=== PATIENT | female | born 1990 | race Caucasian/White ===

== ENCOUNTER 2021-11-29 07:32 | Inpatient (IN) ==
[2021-11-29] MEDS ORDERED: OXYTOCIN 30 UNITS/500 ML BAG IV PRN ×2 (08:29)
[2021-11-29 08:51] LABS: Hematocrit (blood only) 35.7 % (37-47); Hemoglobin 11.9 g/dL (12.0-16.0); Mean Corpuscular Hemoglobin 25.8 pg (25-34); Mean Corpuscular Hgb Conc 33.3 g/dL (32-36); Mean Corpuscular Volume 77.3 fL (80-100); Nucleated RBC # (auto) 0.02 K/uL (0-0); Nucleated RBC % (auto) 0.1 %; Platelet Count 261 K/uL (130-400); RDW Coefficient of Variation 15.6 % (11.5-14.5); RDW Standard Deviation 43.3 fL (36.4-46.3); Red Blood Count 4.62 M/uL (4.2-5.4); White Blood Count 12.38 K/uL (4.8-10.8)
[2021-11-29] MEDS: LACTATED RINGER'S 1,000 ML IV PRN ×3 (08:57→18:37)
--- NOTE | 2021-11-29 09:02 | History & Physical Report ---
Date of Service November 29, 2021 Assessment & Plan (1) Encounter for induction of labor: Plan: 31-year-old w/ complicated by BMI>40, gestational HTN, and hypothyroidism, presenting to L&D at 38 WGA for scheduled IOL. * GBS+, RI, Rh+: IV Penicillin K, per protocol (6 units now, 3 units q4h) * Gestational htn: reviewed CMP, lipid profile labs. AST, ALT wnl. Alk phos elevated (230) in manner typical of . Pt currently asymptomatic. Continue to monitor. * Admit to L&D * NPO except sips and chips * Pitocin PRN: started * Pt. receiving epidural * Maintenance IVF: Lactated Ringer's at 125 mL * Continuous electronic heart monitoring * Full Code * Anticipate (2) Gestational hypertension: (3) Morbid obesity: (4) Group B streptococcal carriage complicating : Admission and Anticipated Discharge Date Admission Date: November 29, 2021 History of Present Illness Primary Care Provider: Nkechi Peters is a 31 y/o female currently at 38 WGA with an JAN 12/20/21 as determined by LMP who is here for scheduled induction. Her was complicated by gestational hypertension. No contractions; + movement; No fluid loss; No bloody show Had regular appointments with OB. Labs: 11/29/21 Blood type: AB positive Antibody screen: Negative H.9 Hct: 35.7% WBC: 12.38 Plt: 261 Rubella: Immune RPR: Non reactive Gonorrhea: Not detected Chlamydia: Not detected HIV: Negative HbSAg: Negative GBS: Positive Other screens: cff-DNA: declined CF: declined SMA: declined Allergies Allergy/AdvReac Type Severity Reaction Status Date / Time naproxen Allergy Mild Facial Verified 11/29/21 07:55 swelling Home Medications Medication Instructions Recorded Confirmed Type prenat.vits,adilene,bzy-buoz-xusek 1 tab PO DAILY 05/05/21 11/29/21 History breast pump #1 ea 10/01/21 11/26/21 Rx Pepcid 1 tab PO DAILY 11/08/21 11/29/21 History iron 1 tab PO DIRECTED 11/08/21 11/29/21 History Patient History Medical History (Updated 11/29/21 @ 09:10 by Robert White MD) Gestational hypertension LGSIL on Pap smear of cervix Migraine Morbid obesity Varicella vaccination Surgical History History of colposcopy Hx of cholecystectomy [place] teeth removed Family History Father Coronary heart disease Dyslipidemia Mother Thyroid disease Sister Thyroid disease Denies family history of Ovarian cancer Prostate cancer Breast cancer Colorectal cancer Social History Smoking Status: Never smoker Second Hand Exposure: No; Hx Alcohol Use: No Hx Substance Use: No Preferred Language: Bermudian Communication Ability: Effective Visual Impairment: No Limitations Hearing Ability: Normal Geriatric Nursing Assistant Required: No Beliefs That Will Affect Care: None marital status: marital status details: Kvng Peters (30) [phone] Current Living Situation: Spouse Current Living Situation Comment: Kvng- current occupational status: employed 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 No acute distress. Cardiac: Regular rate and rhythm, no murmurs/rubs/gallops. Respiratory: Clear to auscultation bilaterally a/p, no wheezes/rales/rhonchi. No increased work of breathing. Symmetrical chest rise. No respiratory distress. Pelvic: Dilation 3 cm; Effacement 25%; Station -[address] Bella Lower Extremities: No lower extremity edema or swelling. No deep calf pain. Ciara's negative bilaterally Baseline: 150 bpm Variability: Moderate Accelerations: 3+ in 5 minutes Decelerations: None Results & Data ([facility]) Vital Signs (Past 12 Hours) Vital Signs Temp Pulse Resp BP 11/29/21 07:57 36.8 C 22 11/29/21 07:52 109 H 132/93 11/29/21 07:42 36.8 C 22 Supervising Physician Co-Signing Physician Notes Resident Physician Supervision Note: I was present with Dr. White during the history and exam. I discussed the case with the resident and agree with the findings and plan as documented in the note. Any exceptions or clarifications are listed here: admit for planned induction. gest htn, gbs pos, and of note last u/s efw 87%. alvarez balloon deflated, was in vagina, prior to exam findings above. fhts categ 1. plan pitocin and pcn. arom when able. Documented By: Mary Bella MD, FACOG Resident Activity Tracking Resident Involvement: Resident Care Provided Care Provided: OB Delivery
[2021-11-29 09:10] LABS: Albumin Level 3.4 gm/dl (3.4-5.0); BUN Creatinine Ratio 9.1 (10-20); Bilirubin,Total 0.2 mg/dl (0.2-1.0); Creatinine Clr Calc Pharmacy 148.6 ml/min; Est GFR (African American) 120.1 ml/min; Est GFR (Non-African American) 103.6 ml/min; Globulin 3.3 gm/dl (2.5-4.0); Potassium 3.7 mmol/L (3.5-5.1); Total Protein 6.7 gm/dl (6.0-8.3)
[2021-11-29] MEDS ORDERED: PENICILLIN G POTASSIUM 6 MU in DEXTROSE 5% 250 ML IV ONE (09:15)
[2021-11-29] MEDS ORDERED: fentaNYL citrate 100 MCG/2 ML VIAL ONE (13:23)
[2021-11-29] MEDS ORDERED: BUPIVACAINE 0.25% 30 ML VIAL ONE ×2 (13:23→15:49)
[2021-11-29] MEDS ORDERED: SODIUM CHLORIDE 0.9% INJ 10 ML VIAL ONE ×2 (13:23→16:05)
[2021-11-29] MEDS ORDERED: ePHEDrine sulfate 50 MG/ML AMP ONE (13:23)
[2021-11-29] MEDS ORDERED: fentaNYL 2MCG/ML ROPIVACAINE 1.25MG/ML 100 ML BAG EPI ONE ×2 (13:25→18:41)
[2021-11-29] MEDS: PENICILLIN G POTASSIUM 3 MU in DEXTROSE 5% 100 ML IV SCH ×2 (13:26→17:29)
[2021-11-29] MEDS ORDERED: diphenhydrAMINE 50 MG/ML VIAL IV PRN (13:53)
[2021-11-29] MEDS ORDERED: NALOXONE HCL 1 MG in SODIUM CHLORIDE 0.9% 1000ML 1,000 ML IV PRN (13:53)
[2021-11-29] MEDS ORDERED: NALBUPHINE HCL INJ 10 MG/ML AMP IV PRN (13:53)
[2021-11-29] MEDS ORDERED: ePHEDrine sulfate 50 MG/ML AMP IV PRN (13:53)
[2021-11-29] MEDS ORDERED: NALOXONE HCL 0.4 MG/1 ML VIAL/CARP IV PRN (13:53)
--- NOTE | 2021-11-29 13:57 | Anesthesiology Consultation ---
Date of Service November 29, 2021 Assessment & Plan Chart Review Chart Review: Patient NOT seen in Pre Admission Testing and Acceptable Risk for Labor Epidural Consults Requested none ASA ASA3 Proposed Anesthesia Anesthesia Type: Labor Epidural and CSE Risk / Benefits Reviewed With: PT / POA / Parent / Guardian, Accepts Plan and Informed Consent Obtained History Height/Weight Height: 5 ft 5 in Weight: 134.717 kg Allergies Allergy/AdvReac Type Severity Reaction Status Date / Time naproxen Allergy Mild Facial Verified 11/29/21 07:55 swelling Medications Home Medications Medication Instructions Recorded Confirmed Last Taken prenat.vits,adilene,ayb-yybs-coxkm 1 tab PO DAILY 05/05/21 11/29/21 1 Day Ago ~11/28/21 breast pump #1 ea 10/01/21 11/26/21 Unknown Pepcid 1 tab PO DAILY 11/08/21 11/29/21 1 Day Ago ~11/28/21 iron 1 tab PO DIRECTED 11/08/21 11/29/21 2 Days Ago ~11/27/21 Active Medications Generic Name Dose Route Start Last Admin Trade Name Cliff PRN Reason Stop Dose Admin Lactated Ringer's 1,000 mls @ 125 mls/hr 11/29/21 08:29 11/29/21 13:52 Lr IV 12/01/21 08:28 999 mls/hr .Q8H PRN Administration L&D Protocol Protocol Oxytocin 30 units in 500 mls @ 17 mls/hr 11/29/21 08:29 11/29/21 13:32 Pitocin IV 12/01/21 08:28 1.02 units/hr .Q24H PRN 17 mls/hr Labor Induction/Augmentation Titration Protocol 1.02 UNITS/HR Penicillin G Potassium 3 mu/ 106 mls @ 100 mls/hr 11/29/21 10:00 11/29/21 13:26 Dextrose IV 12/09/21 09:59 100 mls/hr Q4H KRISTEN Administration Protocol NPO Date Last Intake of Fluids: 11/29/21 Time Last Intake of Fluids: 13:00 Date Last Intake of Solids: 11/29/21 Time Last Intake of Solids: 09:00 Past Medical History Medical History Gestational hypertension LGSIL on Pap smear of cervix Migraine Morbid obesity Varicella vaccination Exercise / Class Metabolic Activity II 4-5 Yardwork/Stairs/Walk up hill Past Family History Family History Father Coronary heart disease Dyslipidemia Mother Thyroid disease Sister Thyroid disease Denies family history of Ovarian cancer Prostate cancer Breast cancer Colorectal cancer Past Surgical History Surgical History History of colposcopy Hx of cholecystectomy [place] teeth removed Past Anesthesia History No Hx of Anesthesia Complications and No Family Hx of Anesthesia Complications History of PONV No Hx of PONV and No Hx of Motion Sickness Social History Smoking Status: Never smoker Hx Alcohol Use: No Hx Substance Use: No substance use type: does not use Review of Systems no chest pain or sob Physical Exam Vital Signs Last Vital Signs Temp 36.7 C 11/29/21 11:07 Pulse 91 H 11/29/21 13:50 Resp 18 11/29/21 11:07 BP 137/89 11/29/21 13:14 Pulse Ox 99 11/29/21 13:50 Constitutional + morbidly obese ENMT Mouth: no TMJ abnormality Thyromental Distance: > or= 3.5 Finger Breadths Mallampati Class: II Neck normal visual inspection Respiratory normal respiratory effort Auscultation: lungs clear to auscultation bilaterally Cardiovascular Rate/Rhythm: regular rate and regular rhythm Musculoskeletal Spine: normal cervical ROM Neurologic moves all extremities Psychiatric Orientation: alert and oriented x 3 Testing Laboratory Results 11/29/21 08:44 11/29/21 08:44 Blood Type AB Positive 11/29/21 08:30 Antibody Screen NEGATIVE 11/29/21 08:30
--- NOTE | 2021-11-29 15:03 | Labor Progress Brief Note ---
Date of Service November 29, 2021 Subjective has epidural and comfortable. Assessment & Plan (1) Gestational hypertension: (2) Encounter for induction of labor: (3) Morbid obesity: (4) Group B streptococcal carriage complicating : Plan: c/w pit and see how arom helps labor pattern. c/w pcn. fhts categ 1. Admission and Anticipated Discharge Date Admission Date: November 29, 2021 Physical Exam Constitutional: WD/WN, vitals as above Genitourinary: Manual OB Exam: + cervical dilation (3-4cm), + cervical effacement 80%, + station (anterior) -2 and + amniotic fluid (AROM ) clear OB Exam Monitor Tracing: + external FHT monitor used, + external uterine monitor used (pit at 20, not traced well. ), + category I and + normal FHT variability [facility] Data ([facility]) Vital Signs (Past 12 Hours) Vital Signs Temp Pulse Resp BP Pulse Ox 11/29/21 15:01 77 140/70 11/29/21 15:00 83 11/29/21 14:55 103 H 99 11/29/21 14:50 86 22 99 11/29/21 14:45 89 22 99 11/29/21 14:44 83 126/74 11/29/21 14:40 81 22 98 11/29/21 14:38 86 123/65 11/29/21 14:35 82 20 98 11/29/21 14:32 85 123/72 11/29/21 14:30 83 20 98 11/29/21 14:27 82 118/60 11/29/21 14:25 83 20 98 11/29/21 14:22 80 116/62 11/29/21 14:20 92 H 20 99 11/29/21 14:16 90 124/59 L 11/29/21 14:15 92 H 20 100 11/29/21 14:14 88 111/61 11/29/21 14:12 83 129/77 11/29/21 14:10 91 H 24 100 11/29/21 14:09 86 126/88 11/29/21 14:07 91 H 175/100 H 11/29/21 14:05 93 H 100 11/29/21 14:00 103 H 99 11/29/21 13:55 98.1 F 98 H 20 98 11/29/21 13:50 91 H 99 11/29/21 13:14 93 H 137/89 11/29/21 12:03 95 H 127/85 11/29/21 11:07 98.1 F 18 11/29/21 11:03 150/106 H 11/29/21 07:57 98.2 F 22 11/29/21 07:52 109 H 132/93 11/29/21 07:42 98.2 F 22 Coding Level of Care Code None Diagnoses Gestational hypertension O13.9 Encounter for induction of labor Z34.90 Morbid obesity E66.01 Group B streptococcal carriage complicating O99.820
[2021-11-29] MEDS ORDERED: CALCIUM CARBONATE 500 MG CHEWABLE TAB ONE ×2 (17:26→17:29)
[2021-11-29] MEDS: CALCIUM CARBONATE 500 MG CHEWABLE TAB PO PRN ×2 (17:30→22:42)
[2021-11-29] MEDS: fentaNYL 2MCG/ML ROPIVACAINE 1.25MG/ML 100 ML BAG EPI PRN (18:44)
[2021-11-29] MEDS ORDERED: NURSING L&D Epidural Breakthrough Pain Update ONE (18:52)
[2021-11-29] MEDS ORDERED: FAMOTIDINE 40 MG TABLET PO ONE (19:51)
--- NOTE | 2021-11-29 19:55 | Labor Progress Brief Note ---
Date of Service November 29, 2021 Subjective having heartburn, tums did not help. takes 40mg pepcid nightly usually. Assessment & Plan (1) Morbid obesity: (2) Group B streptococcal carriage complicating : (3) Gestational hypertension: (4) Encounter for induction of labor: Plan: minimal cx change but some change. will try to 1/2 pit and re-increase to see how pattern looks. fhts categ 1. pepcid ordered. c/w pcn as well. Admission and Anticipated Discharge Date Admission Date: November 29, 2021 Physical Exam Constitutional: WD/WN, vitals as above Genitourinary: Manual OB Exam: + cervical dilation 5 cm, + cervical effacement 80% and + station -2 OB Exam Monitor Tracing: + external FHT monitor used (145 mod variability, ), + external uterine monitor used (q3), + category I and + normal FHT variability Results & Data ([facility]) Vital Signs (Past 12 Hours) Vital Signs Temp Pulse Resp BP Pulse Ox 11/29/21 19:50 93 H 97 11/29/21 19:45 95 H 149/82 H 97 11/29/21 19:40 82 97 11/29/21 19:35 93 H 97 11/29/21 19:30 81 148/81 H 98 11/29/21 19:25 86 98 11/29/21 19:20 89 98 11/29/21 19:16 80 153/90 H 11/29/21 19:15 83 99 11/29/21 19:10 98 H 100 11/29/21 19:05 98.4 F 84 18 100 11/29/21 19:00 100 H 20 137/77 98 11/29/21 18:55 80 98 11/29/21 18:50 77 99 11/29/21 18:46 81 148/81 H 11/29/21 18:45 85 100 11/29/21 18:40 77 99 11/29/21 18:35 83 99 11/29/21 18:34 98.4 F 11/29/21 18:31 77 138/84 11/29/21 18:30 77 20 99 11/29/21 18:25 80 99 11/29/21 18:20 74 99 11/29/21 18:15 75 145/82 H 100 11/29/21 18:10 88 99 03/22 18:05 73 99 03/22 18:00 77 20 140/85 99 03/22 17:55 78 98 22 17:50 76 99 03/22 17:45 79 132/76 99 03/22 17:40 89 99 03/22 17:35 86 100 11/29/22 17:30 82 20 150/95 H 99 22 17:25 76 99 22 17:20 86 99 0322 17:16 72 142/92 H 22 17:15 74 100 11/29/21 17:10 78 99 22 17:05 80 99 22 17:00 91 H 20 147/86 H 99 22 16:55 79 99 22 16:50 77 99 22 16:47 76 147/84 H 11/29/21 16:45 74 98 22 16:40 76 97 22 16:35 98.2 F 77 20 98 22 16:31 77 115/56 L 11/29/21 16:30 74 20 97 11/29/22 16:25 84 97 11/29/22 16:20 88 97 22 16:16 86 128/75 11/29/22 16:15 84 20 98 11/29/22 16:10 93 H 97 22 16:05 84 97 22 16:01 79 127/68 03/22 16:00 79 20 97 22 15:55 83 96 11/29/22 15:50 85 97 11/29/22 15:46 87 133/73 03/22 15:45 83 22 98 03/22 15:40 88 98 03/22 15:35 76 97 11/29/22 15:31 81 162/76 H 11/29/22 15:30 89 24 98 0321/22 15:25 92 H 98 11/29/22 15:20 95 H 99 11/29/22 15:17 76 139/76 0321/22 15:15 81 20 98 03/22 15:10 77 99 03/21/22 15:05 91 H 99 11/29/21 15:01 77 140/70 11/29/21 15:00 83 20 99 11/29/21 14:55 103 H 99 11/29/21 14:50 86 22 99 11/29/21 14:45 89 22 99 11/29/21 14:44 83 126/74 11/29/21 14:40 81 22 98 11/29/21 14:38 86 123/65 11/29/21 14:35 82 20 98 11/29/21 14:32 85 123/72 11/29/21 14:30 83 20 98 11/29/21 14:27 82 118/60 11/29/21 14:25 83 20 98 11/29/21 14:22 80 116/62 11/29/21 14:20 92 H 20 99 11/29/21 14:16 90 124/59 L 11/29/21 14:15 92 H 20 100 11/29/21 14:14 88 111/61 11/29/21 14:12 83 129/77 11/29/21 14:10 91 H 24 100 11/29/21 14:09 86 126/88 11/29/21 14:07 91 H 175/100 H 11/29/21 14:05 93 H 100 11/29/21 14:00 103 H 99 11/29/21 13:55 98.1 F 98 H 20 98 11/29/21 13:50 91 H 99 11/29/21 13:14 93 H 137/89 11/29/21 12:03 95 H 127/85 11/29/21 11:07 98.1 F 18 11/29/21 11:03 150/106 H 11/29/21 07:57 98.2 F 22 Coding Level of Care Code None Diagnoses Morbid obesity E66.01 Group B streptococcal carriage complicating O99.820 Gestational hypertension O13.9 Encounter for induction of labor Z34.90
[2021-11-29] MEDS: PENICILLIN G POTASSIUM 3 MU in DEXTROSE 5% 100 ML IV PRN (21:30)
[2021-11-29] MEDS: ONDANSETRON INJ 2 MG/ML 2 ML VIAL IV PRN (22:38)
[2021-11-30] MEDS: fentaNYL 2MCG/ML ROPIVACAINE 1.25MG/ML 100 ML BAG EPI PRN ×2 (00:12→06:07)
[2021-11-30] MEDS: PENICILLIN G POTASSIUM 3 MU in DEXTROSE 5% 100 ML IV PRN ×2 (01:38→05:34)
--- NOTE | 2021-11-30 02:46 | Labor Progress Brief Note ---
Date of Service November 30, 2021 Subjective comfortable no rectal pressure Assessment & Plan (1) Morbid obesity: (2) Gestational hypertension: (3) Encounter for induction of labor: (4) Group B streptococcal carriage complicating : Plan: c/w pit and pcn. anticip 2nd stage soon. fhts categ 1. bps as noted. Admission and Anticipated Discharge Date Admission Date: November 29, 2021 Physical Exam Constitutional: WD/WN, vitals as above Genitourinary: Manual OB Exam: + cervical dilation (rim), + cervical effacement 100% and + station 0 OB Exam Monitor Tracing: + external FHT monitor used, + external uterine monitor used (q2-3 pit at 29), + category I and + normal FHT variability [facility]) Vital Signs (Past 12 Hours) Vital Signs Temp Pulse Resp BP Pulse Ox 11/30/21 02:40 95 H 98 11/30/21 02:35 105 H 97 11/30/21 02:31 101 H 143/82 H 11/30/21 02:30 97 H 96 11/30/21 02:25 94 H 95 11/30/21 02:20 93 H 97 11/30/21 02:16 100 H 144/91 H 11/30/21 02:15 93 H 97 11/30/21 02:10 94 H 97 11/30/21 02:05 100 H 97 11/30/21 02:00 121 H 135/88 96 11/30/21 01:55 97 H 97 11/30/21 01:50 95 H 98 11/30/21 01:45 102 H 143/92 H 97 11/30/21 01:40 100 H 98 11/30/21 01:35 109 H 98 11/30/21 01:30 99 H 146/93 H 98 11/30/21 01:25 92 H 95 11/30/21 01:20 96 H 95 11/30/21 01:15 86 146/91 H 96 11/30/21 01:10 96 H 96 11/30/21 01:05 95 H 96 11/30/21 01:01 92 H 149/92 H 11/30/21 01:00 98.4 F 95 H 97 11/30/21 00:55 92 H 96 11/30/21 00:50 98 H 97 11/30/21 00:46 94 H 141/90 H 11/30/21 00:45 90 96 11/30/21 00:40 86 96 11/30/21 00:35 106 H 96 11/30/21 00:30 100 H 147/95 H 98 11/30/21 00:25 90 97 11/30/21 00:20 93 H 98 11/30/21 00:16 89 142/92 H 11/30/21 00:15 94 H 97 11/30/21 00:10 87 98 11/30/21 00:05 100 H 98 11/30/21 00:01 90 152/94 H 11/30/21 00:00 87 98 11/29/21 23:55 96 H 98 11/29/21 23:50 112 H 98 22 23:45 91 H 128/77 97 22 23:40 89 97 22 23:35 90 94 22 23:33 88 94 22 23:30 87 135/77 96 22 23:25 79 97 22 23:21 99 H 94 22 23:20 97 H 95 22 23:16 86 131/76 22 23:15 84 97 0322 23:10 89 96 22 23:05 89 97 0322 23:02 90 118/74 22 23:00 98.6 F 89 97 0322 22:55 120 H 97 22 22:50 115 H 97 0322 22:46 92 H 157/97 H 22 22:45 90 98 032122 22:40 98 H 98 032122 22:35 103 H 159/85 H 100 032122 22:33 94 H 165/90 H 032122 22:30 97 H 176/94 H 99 03/22 22:25 101 H 99 03/22 22:20 90 98 032122 22:19 90 155/83 H 0321/22 22:17 88 156/103 H 032122 22:15 84 98 032122 22:10 84 98 032122 22:05 83 97 0322 22:00 82 152/81 H 98 0321/22 21:55 89 99 0321/22 21:50 82 98 0321/22 21:46 82 160/88 H 0322 21:45 84 97 03/22 21:40 98.2 F 88 98 03/22 21:35 88 99 0321/22 21:30 88 141/80 H 98 0322 21:25 83 97 0322 21:20 77 97 032122 21:15 84 133/70 97 0322 21:10 80 97 0322 21:05 94 H 97 0322 21:00 93 H 134/75 96 032122 20:55 85 96 0322 20:50 93 H 97 03/22 20:47 88 138/76 0322 20:45 85 96 03/22 20:40 94 H 98 0322 20:35 87 96 0322 20:30 97 H 148/93 H 96 22 20:25 87 96 0321/22 20:20 86 96 0321/22 20:15 110 H 147/93 H 96 03/22 20:10 106 H 98 22 20:05 87 97 0322 20:00 87 144/90 H 97 22 19:55 81 96 0322 19:50 93 H 97 22 19:45 95 H 149/82 H 97 22 19:40 82 97 0322 19:35 93 H 97 0321/22 19:30 81 148/81 H 98 03/22 19:25 86 98 0321/22 19:20 89 98 032122 19:16 80 153/90 H 11/29/22 19:15 83 99 03/22 19:10 98 H 100 03/22 19:05 98.4 F 84 18 100 22 19:00 100 H 20 137/77 98 03/22 18:55 80 98 032122 18:50 77 99 0322 18:46 81 148/81 H 11/29/21 18:45 85 100 22 18:40 77 99 0322 18:35 83 99 0322 18:34 98.4 F 11/29/21 18:31 77 138/84 22 18:30 77 20 99 22 18:25 80 99 22 18:20 74 99 22 18:15 75 145/82 H 100 11/29/21 18:10 88 99 22 18:05 73 99 22 18:00 77 20 140/85 99 11/29/21 17:55 78 98 11/29/21 17:50 76 99 22 17:45 79 132/76 99 22 17:40 89 99 22 17:35 86 100 11/29/21 17:30 82 20 150/95 H 99 11/29/21 17:25 76 99 11/29/21 17:20 86 99 11/29/21 17:16 72 142/92 H 11/29/21 17:15 74 100 11/29/21 17:10 78 99 11/29/21 17:05 80 99 11/29/21 17:00 91 H 20 147/86 H 99 11/29/21 16:55 79 99 11/29/21 16:50 77 99 22 16:47 76 147/84 H 11/29/21 16:45 74 98 22 16:40 76 97 11/29/21 16:35 98.2 F 77 20 98 11/29/21 16:31 77 115/56 L 11/29/21 16:30 74 20 97 22 16:25 84 97 22 16:20 88 97 22 16:16 86 128/75 22 16:15 84 20 98 22 16:10 93 H 97 22 16:05 84 97 22 16:01 79 127/68 22 16:00 79 20 97 22 15:55 83 96 22 15:50 85 97 22 15:46 87 133/73 22 15:45 83 22 98 0322 15:40 88 98 11/29/21 15:35 76 97 11/29/21 15:31 81 162/76 H 11/29/21 15:30 89 24 98 11/29/21 15:25 92 H 98 11/29/21 15:20 95 H 99 11/29/21 15:17 76 139/76 11/29/21 15:15 81 20 98 11/29/21 15:10 77 99 11/29/21 15:05 91 H 99 11/29/21 15:01 77 140/70 11/29/21 15:00 83 20 99 11/29/21 14:55 103 H 99 11/29/21 14:50 86 22 99 11/29/21 14:45 89 22 99 Coding Level of Care Code None Diagnoses Morbid obesity E66.01 Gestational hypertension O13.9 Encounter for induction of labor Z34.90 Group B streptococcal carriage complicating O99.820
[2021-11-30] MEDS: CALCIUM CARBONATE 500 MG CHEWABLE TAB PO PRN (02:56)
[2021-11-30] MEDS: ONDANSETRON INJ 2 MG/ML 2 ML VIAL IV PRN (04:33)
[2021-11-30] MEDS: LACTATED RINGER'S 1,000 ML IV PRN (04:33)
--- NOTE | 2021-11-30 05:58 | Labor Progress Brief Note ---
Date of Service November 30, 2021 Subjective comfortable Assessment & Plan (1) Gestational hypertension: (2) Morbid obesity: (3) Group B streptococcal carriage complicating : (4) Encounter for induction of labor: Plan: begin 2nd stage, fhts categ 1, c/w pit and pcn. Admission and Anticipated Discharge Date Admission Date: November 29, 2021 Physical Exam Constitutional: WD/WN, vitals as above Genitourinary: Manual OB Exam: + cervical dilation 10 cm, + cervical effacement 100% and + station + 1 and + 2 OB Exam Monitor Tracing: + external FHT monitor used, + external uterine monitor used (q2-3 pit at 30), + category I and + normal FHT variability [facility] & Data ([facility]) Vital Signs (Past 12 Hours) Vital Signs Temp Pulse Resp BP Pulse Ox 11/30/21 05:52 103 H 144/87 H 11/30/21 05:50 125 H 97 11/30/21 05:45 124 H 97 11/30/21 05:40 112 H 98 11/30/21 05:35 119 H 98 11/30/21 05:30 109 H 159/95 H 98 11/30/21 05:25 101 H 96 11/30/21 05:20 97 H 98 11/30/21 05:16 107 H 151/103 H 11/30/21 05:15 102 H 96 11/30/21 05:11 108 H 151/94 H 11/30/21 05:10 101 H 97 11/30/21 05:05 94 H 98 11/30/21 05:01 116 H 159/109 H 11/30/21 05:00 98.6 F 116 H 98 11/30/21 04:55 118 H 96 11/30/21 04:50 109 H 97 11/30/21 04:46 101 H 148/104 H 11/30/21 04:45 105 H 96 11/30/21 04:40 103 H 96 11/30/21 04:35 113 H 96 11/30/21 04:30 125 H 164/101 H 98 11/30/21 04:25 102 H 98 11/30/21 04:20 102 H 98 11/30/21 04:16 103 H 159/97 H 11/30/21 04:15 100 H 97 11/30/21 04:10 116 H 96 11/30/21 04:05 101 H 96 11/30/21 04:00 103 H 149/97 H 98 11/30/21 03:55 112 H 99 11/30/21 03:50 94 H 98 11/30/21 03:45 99 H 141/93 H 97 11/30/21 03:40 106 H 97 11/30/21 03:35 101 H 97 11/30/21 03:30 90 154/82 H 96 11/30/21 03:25 96 H 97 11/30/21 03:20 88 98 11/30/21 03:16 96 H 139/98 11/30/21 03:15 91 H 98 11/30/21 03:10 95 H 98 11/30/21 03:05 91 H 97 11/30/21 03:01 101 H 138/87 11/30/21 03:00 98.6 F 96 H 97 11/30/21 02:55 100 H 98 11/30/21 02:50 103 H 97 11/30/21 02:45 120 H 97 11/30/21 02:40 95 H 98 11/30/21 02:35 105 H 97 11/30/21 02:31 101 H 143/82 H 11/30/21 02:30 97 H 96 11/30/21 02:25 94 H 95 11/30/21 02:20 93 H 97 11/30/21 02:16 100 H 144/91 H 11/30/21 02:15 93 H 97 11/30/21 02:10 94 H 97 11/30/21 02:05 100 H 97 11/30/21 02:00 121 H 135/88 96 11/30/21 01:55 97 H 97 11/30/21 01:50 95 H 98 11/30/21 01:45 102 H 143/92 H 97 11/30/21 01:40 100 H 98 11/30/21 01:35 109 H 98 11/30/21 01:30 99 H 146/93 H 98 11/30/21 01:25 92 H 95 11/30/21 01:20 96 H 95 11/30/21 01:15 86 146/91 H 96 11/30/21 01:10 96 H 96 11/30/21 01:05 95 H 96 11/30/21 01:01 92 H 149/92 H 11/30/21 01:00 98.4 F 95 H 97 11/30/21 00:55 92 H 96 11/30/21 00:50 98 H 97 11/30/21 00:46 94 H 141/90 H 11/30/21 00:45 90 96 11/30/21 00:40 86 96 11/30/21 00:35 106 H 96 11/30/21 00:30 100 H 147/95 H 98 11/30/21 00:25 90 97 11/30/21 00:20 93 H 98 11/30/21 00:16 89 142/92 H 11/30/21 00:15 94 H 97 11/30/21 00:10 87 98 11/30/21 00:05 100 H 98 11/30/21 00:01 90 152/94 H 11/30/21 00:00 87 98 11/29/21 23:55 96 H 98 11/29/21 23:50 112 H 98 11/29/21 23:45 91 H 128/77 97 11/29/21 23:40 89 97 22 23:35 90 94 11/29/21 23:33 88 94 22 23:30 87 135/77 96 22 23:25 79 97 22 23:21 99 H 94 22 23:20 97 H 95 22 23:16 86 131/76 22 23:15 84 97 22 23:10 89 96 22 23:05 89 97 22 23:02 90 118/74 22 23:00 98.6 F 89 97 22 22:55 120 H 97 22 22:50 115 H 97 22 22:46 92 H 157/97 H 22 22:45 90 98 22 22:40 98 H 98 0322 22:35 103 H 159/85 H 100 22 22:33 94 H 165/90 H 0322 22:30 97 H 176/94 H 99 0322 22:25 101 H 99 032122 22:20 90 98 22 22:19 90 155/83 H 032122 22:17 88 156/103 H 0321/22 22:15 84 98 032122 22:10 84 98 032122 22:05 83 97 0322 22:00 82 152/81 H 98 0321/22 21:55 89 99 0321/22 21:50 82 98 032122 21:46 82 160/88 H 0322 21:45 84 97 0322 21:40 98.2 F 88 98 032122 21:35 88 99 0322 21:30 88 141/80 H 98 032122 21:25 83 97 0322 21:20 77 97 032122 21:15 84 133/70 97 0322 21:10 80 97 032122 21:05 94 H 97 0322 21:00 93 H 134/75 96 0322 20:55 85 96 0322 20:50 93 H 97 0322 20:47 88 138/76 0321/22 20:45 85 96 0321/22 20:40 94 H 98 0321/22 20:35 87 96 032122 20:30 97 H 148/93 H 96 0322 20:25 87 96 0321/22 20:20 86 96 0321/22 20:15 110 H 147/93 H 96 0321/22 20:10 106 H 98 0322 20:05 87 97 032122 20:00 87 144/90 H 97 0322 19:55 81 96 0321/22 19:50 93 H 97 0321/22 19:45 95 H 149/82 H 97 0321/22 19:40 82 97 0321/22 19:35 93 H 97 0321/22 19:30 81 148/81 H 98 0321/22 19:25 86 98 0321/22 19:20 89 98 0321/22 19:16 80 153/90 H 0321/22 19:15 83 99 0321/22 19:10 98 H 100 0321/22 19:05 98.4 F 84 18 100 03/22 19:00 100 H 20 137/77 98 11/29/21 18:55 80 98 11/29/21 18:50 77 99 11/29/21 18:46 81 148/81 H 11/29/21 18:45 85 100 11/29/21 18:40 77 99 11/29/21 18:35 83 99 11/29/21 18:34 98.4 F 11/29/21 18:31 77 138/84 11/29/21 18:30 77 20 99 11/29/21 18:25 80 99 11/29/21 18:20 74 99 11/29/21 18:15 75 145/82 H 100 11/29/21 18:10 88 99 11/29/21 18:05 73 99 11/29/21 18:00 77 20 140/85 99 Coding Level of Care Code None Diagnoses Gestational hypertension O13.9 Morbid obesity E66.01 Group B streptococcal carriage complicating O99.820 Encounter for induction of labor Z34.90
--- NOTE | 2021-11-30 07:36 | Delivery Summary ---
Vaginal Delivery Summary Date of Service November 30, 2021 Vaginal Delivery Summary and 2nd Degree LAC The patient dilated to complete and pushed to deliver a viable female infant Apgars 8 and 9 via over 2nd degree perineal laceration. Mouth and nose bulb suctioned at perineum. Shoulders and body delivered with ease. Infant was vigorous and crying at . Cord clamped at 30 seconds of life and infant to maternal abdomen where the cord was then doubly clamped and cut. Placenta delivered spontaneously and intact, three-vessel cord. Hemostasis not achieved with dilute pitocin and uterine massage and drainage of the bladder for approximately 300 cc under sterile conditions. Uterus swept and no retained products noted. Cytotec rectally x 800mcg and IM hemabate given. Bleeding improved. Laceration repaired in layers with 3-0 vicryl and right labial laceration reapproximated with same suture for excellent hemostasis. Cervix and sulci intact. EBL 500 cc. Mother and baby stable in recovery. [facility] Vaginal Delivery Charge Delivery Type Details: and 2nd Degree LAC
[2021-11-30] MEDS ORDERED: BENZOCAINE 20% AER SPR 82.5 GM CAN EXT PRN (08:10)
[2021-11-30] MEDS ORDERED: ACETAMINOPHEN 325 MG TAB PO PRN (08:10)
[2021-11-30] MEDS ORDERED: DIPHTHERIA/TETANUS/PERTUSSIS 0.5 ML SYR/VIAL IM ONE (08:10)
[2021-11-30] MEDS ORDERED: OXYTOCIN 30 UNITS/500 ML BAG IV PRN (08:10)
[2021-11-30] MEDS ORDERED: OXYTOCIN 20 UNITS in LACTATED RINGER'S 1,000 ML IV SCH (08:10)
[2021-11-30] MEDS ORDERED: miSOPROStoL 200 MCG TAB PR ONE (08:10)
[2021-11-30] MEDS ORDERED: CARBOPROST TROMETHAMINE 250 MCG/ML AMPUL IM ONE (08:10)
[2021-11-30] MEDS ORDERED: HYDROCORTISONE ACETATE 25 MG SUPP PR PRN (08:10)
[2021-11-30] MEDS ORDERED: FAMOTIDINE 40 MG TABLET PO SCH (09:00)
--- NOTE | 2021-11-30 09:23 | Anesthesia Procedure Note ---
Date of Service November 30, 2021 Anesthesia Post Epidural Note Vital Signs Vital Signs: Temp Pulse Resp BP Pulse Ox 37.0 C 112 H 18 159/92 H 97 11/30/21 05:00 11/30/21 09:18 11/29/21 19:05 11/30/21 09:18 11/30/21 07:37 Pain Intensity Bilateral Abdomen: Pain Intensity: 6 Notes Mental Status: alert / awake / arousable and participated in evaluation Patient Amnestic to Procedure: No Nausea / Vomiting: adequately controlled Pain: adequately controlled Airway Patency, RR, SpO2: stable & adequate BP & HR: stable & adequate Hydration State: stable & adequate Neuraxial Anesthesia: was administered and sensory block is resolving Anesthetic Complications: no major complications apparent and Pt Satisfied with anesthetic care Epidural: Removed without complications and With tip intact
[2021-11-30] MEDS: DOCUSATE SODIUM 100 MG CAP PO SCH ×2 (13:10→21:18)
[2021-11-30] MEDS: PRENATAL VITAMIN 1 TAB PO SCH (13:10)
[2021-11-30] MEDS ORDERED: Nursing to Pharmacy Communication SCH (13:15)
[2021-11-30] MEDS ORDERED: IBUPROFEN 600 MG TAB PO PRN (14:28)
[2021-11-30] MEDS: IBUPROFEN 600 MG TAB PO PRN (19:22)
[2021-11-30] MEDS: FAMOTIDINE 40 MG TABLET PO SCH (22:29)
[2021-11-30] MEDS: oxyCODONE/ACETAMINOPHEN 5mg/325mg TAB PO PRN ×2 (22:30→22:36)
[2021-12-01] MEDS: IBUPROFEN 600 MG TAB PO PRN ×4 (03:26→18:23)
[2021-12-01 06:56] LABS: Hematocrit (blood only) 27.2 % (37-47); Hemoglobin 8.9 g/dL (12.0-16.0)
--- NOTE | 2021-12-01 07:44 | Obstetrical Progress Note ---
Date of Service <Robert White MD - Last Filed: 12/01/21 07:44> December 01, 2021 Assessment & Plan <Robert White MD - Last Filed: 12/01/21 07:44> (1) Encounter for care and examination after delivery: PPD 1: stable, routine management * patient voiding and ambulating without difficulty * pain well controlled on analgesia * tolerating regular diet * pump feeding + formula supplementation * reassess d/c readiness tomorrow AM * observe on L+D floor today <Marcia Hood MD, FACOG - Last Filed: 12/01/21 08:51> (1) Encounter for care and examination after delivery: Subjective <Robert White MD - Last Filed: 12/01/21 07:44> Marika is a 31 y/o female who is now PPD 1 following spontaneous vaginal delivery at 37.1 weeks. Reports feeling well overall this morning. Moderate cramping pain well managed on analgesics. Voiding well. Tolerating meals well and able to ambulate on her own. + passing gas. Lochia improved this morning. Pump feeding with formula supplementation. Review of Systems Denies fever, chills, sweats Denies shortness of breath, difficulty breathing, chest pain, palpitations, chest pressure. Denies breast pain. Denies dysuria. Denies headache or changes in vision Physical Exam <Robert White MD - Last Filed: 12/01/21 07:44> General: Alert, oriented. No acute distress. Cardiac: Regular rate and rhythm, no murmurs/rubs/gallops. Respiratory: Clear to auscultation bilaterally a/p, no wheezes/rales/rhonchi. No increased work of breathing. Symmetrical chest rise. No respiratory distress. Abdomen: Soft, nontender, nondistended. Bowel sounds present. Uterus: Uterine fundus firm, palpable 3 cm below umbilicus. Lower Extremities: No lower extremity edema or swelling. No deep calf pain. Ciara's negative bilaterally.. Results & Data ([facility] [place]) <Robert White MD - Last Filed: 12/01/21 07:44> Vital Signs (Past 12 Hours) Vital Signs Temp Pulse Resp BP Pulse Ox 12/01/21 04:30 36.8 C 98 H 18 118/80 98 12/01/21 00:30 36.6 C 98 H 18 115/83 98 11/30/21 20:30 36.6 C 78 18 104/67 99 <Marcia Hood MD, FACOG - Last Filed: 12/01/21 08:51> Co-Signing Physician Notes Resident Physician Supervision Note: I interviewed and examined the patient. Discussed with Dr. White and agree with findings and plan as documented in the note. Any exceptions or clarifications are listed here: [None] Documented By: Marcia Hood MD, FACOG Resident Activity Tracking <Robert White MD - Last Filed: 12/01/21 07:44> Resident Involvement: Resident Care Provided Care Provided: OB Delivery
[2021-12-01] MEDS: DOCUSATE SODIUM 100 MG CAP PO SCH ×2 (08:52→20:35)
[2021-12-01] MEDS: PRENATAL VITAMIN 1 TAB PO SCH (08:52)
[2021-12-01] MEDS: oxyCODONE/ACETAMINOPHEN 5mg/325mg TAB PO PRN (11:56)
[2021-12-01] MEDS: FERROUS SULFATE 325 MG TAB PO SCH (15:31)
[2021-12-01] MEDS: FAMOTIDINE 40 MG TABLET PO SCH (20:35)
--- NOTE | 2021-12-02 07:18 | Obstetrical Progress Note ---
Date of Service <Robert Whiet MD - Last Filed: 12/02/21 07:18> December 02, 2021 Assessment & Plan <Robert White MD - Last Filed: 12/02/21 07:18> (1) Encounter for care and examination after delivery: PPD 2: stable, routine management * patient voiding and ambulating without difficulty * pain well controlled on analgesia * tolerating regular diet * EBL >500 ccp.o. iron 325 mg every morning * pump feeding + formula supplementation * D/C today * 6-week outpatient OB follow-up <Raymond Donovan MD, FACOG - Last Filed: 12/02/21 07:20> (1) Encounter for care and examination after delivery: Subjective <Robert White MD - Last Filed: 12/02/21 07:18> Marika is a 31-year-old who is now PPD 2 following spontaneous vaginal delivery for gestational hypertension, hypothyroidism, BMI >40, and GBS + at 37.1 weeks. Reports feeling well overall this morning. Minimal pain well managed on analgesics. Voiding well. Tolerating meals well and able to ambulate with assistance. Lochia much improved this morning. . Review of Systems Denies fever, chills, sweats Denies shortness of breath, difficulty breathing, chest pain, palpitations, chest pressure. Denies breast pain. Denies dysuria. Denies headache or changes in vision Physical Exam <Robert White MD - Last Filed: 12/02/21 07:18> General: Alert, oriented. No acute distress. Cardiac: Regular rate and rhythm, no murmurs/rubs/gallops. Respiratory: Clear to auscultation bilaterally a/p, no wheezes/rales/rhonchi. No increased work of breathing. Symmetrical chest rise. No respiratory distress. Abdomen: Soft, nontender, nondistended. Bowel sounds present. Uterus: Uterine fundus firm, palpable 4 cm below umbilicus. Lower Extremities: No lower extremity edema or swelling. No deep calf pain. Ciara's negative bilaterally.. <Raymond Donovan MD, FACOG - Last Filed: 12/02/21 07:20> Co-Signing Physician Notes Resident Physician Supervision Note: I interviewed and examined the patient. Discussed with [Name of resident] and agree with findings and plan as documented in the note. Any exceptions or clarifications are listed here: [None] Documented By: Raymond Donovan MD, FACOG Resident Activity Tracking <Robert White MD - Last Filed: 12/02/21 07:18> Resident Involvement: Resident Care Provided Care Provided: OB Delivery
[2021-12-02] MEDS: IBUPROFEN 600 MG TAB PO PRN (07:28)
[2021-12-02] MEDS: FERROUS SULFATE 325 MG TAB PO SCH (07:28)
[2021-12-02] MEDS: DOCUSATE SODIUM 100 MG CAP PO SCH (07:28)
[2021-12-02] MEDS: PRENATAL VITAMIN 1 TAB PO SCH (07:28)
== END 2021-12-02 09:35 | disposition home or self-care (01) | DRG 807 ==
LOC: 4S1 07:32 → 4E2 11-30 14:54